=== PATIENT | female | born 1990 | race African-American/Black ===

== ENCOUNTER 2020-09-04 21:16 | Emergency (ER) | payer OTHER ==
[2020-09-04 21:53] VITALS: BP 122/75; PULSE 75; TEMP 98.4; BMI 45.7
[2020-09-04] MEDS ORDERED: ONDANSETRON 4 MG/2 ML VIAL IVPUSH ONE (22:47)
[2020-09-04] MEDS ORDERED: SODIUM CHLORIDE 0.9% 500 ML INFUS.BAG IV ONE (22:47)
[2020-09-04] MEDS ORDERED: FAMOTIDINE 20 MG/50 ML IVPB 20 MG/50 ML MG IVPB ONE ×2 (22:47→22:59)
[2020-09-04] MEDS ORDERED: ONDANSETRON 4 MG/2 ML VIAL ONE (22:59)
[2020-09-04 23:04] LABS: BASO % 0.9 % (0-2.0); EOS % 5.8 % (0-4.5); HEMATOCRIT 30.3 % (32.4-45.2); HEMOGLOBIN 10.1 GM/dL (10.7-15.3); LYMPH % 30.5 % (8-40); MCH 28.5 pg (25.7-33.7); MCHC 33.5 g/dl (32.0-36.0); MEAN CELL VOLUME 85.1 fl (80-96); MEAN PLT VOLUME 7.6 fl (7.5-11.1); MONO % 4.2 % (3.8-10.2); NEUT % 58.6 % (42.8-82.8); PLATELET COUNT 251 K/MM3 (134-434); RBC 3.56 M/mm3 (3.60-5.2)
[2020-09-04 23:19] LABS: HCG,QUALITATIVE URINE Positive; PH,URINE 5.5 (5.0-8.0); URINE APPEARANCE CLEAR; URINE BILIRUBIN NEGATIVE (NEGATIVE); URINE COLOR YELLOW; URINE GLUCOSE (UA) NEGATIVE (NEGATIVE); URINE KETONE TRACE (NEGATIVE); URINE LEUK ESTERASE NEGATIVE (NEGATIVE); URINE NITRITE NEGATIVE (NEGATIVE); URINE PROTEIN NEGATIVE (NEGATIVE)
[2020-09-04 23:23] LABS: POTASSIUM 3.7 mmol/L (3.5-5.1)
[2020-09-04 23:25] LABS: CALCIUM 8.8 mg/dL (8.5-10.1)
[2020-09-04 23:26] LABS: ALBUMIN 3.3 g/dl (3.4-5.0); BLOOD UREA NITROGEN 17.6 mg/dL (7-18)
[2020-09-04 23:29] LABS: CREATININE 0.8 mg/dL (0.55-1.3)
[2020-09-04 23:30] LABS: TOT PROT 7.3 g/dl (6.4-8.2)
[2020-09-04 23:32] LABS: BILIRUBIN,TOTAL 0.2 mg/dL (0.2-1)
== END 2020-09-05 02:58 | disposition home or self-care (01) ==
LOC: JER 21:16
PROC: 3E033GC Introduction of Other Therapeutic Substance into Peripheral Vein, Percutaneous Approach (ICD-10-PCS; principal; 2020-09-04)
PROC: 3E033GC Introduction of Other Therapeutic Substance into Peripheral Vein, Percutaneous Approach (ICD-10-PCS; 2020-09-04)
DX: O21.1 Hyperemesis gravidarum with metabolic disturbance (principal); R19.7 Diarrhea, unspecified; Z3A.01 Less than 8 weeks gestation of pregnancy
CPT/HCPCS: 36415; 76817-TC; 80053; 81003; 83690; 84702; 84703; 85025; 86850; 86900; 86901; 87086; 99285-25; C9803; U0003

== ENCOUNTER 2021-04-03 22:10 | Inpatient (IN) | payer OTHER ==
[2021-04-03] MEDS: ELECTROLYTE-148 SOLN 1,000 ML IV SCH (22:30)
[2021-04-03 22:52] LABS: BASO % 0.2 % (0-2.0); EOS % 5.2 % (0-4.5); HEMATOCRIT 22.5 % (32.4-45.2); HEMOGLOBIN 7.3 GM/dL (10.7-15.3); MCHC 32.5 g/dl (32.0-36.0); MEAN CELL VOLUME 76.9 fl (80-96); MEAN PLT VOLUME 7.5 fl (7.5-11.1); NEUT % 62.6 % (42.8-82.8); PLATELET COUNT 197 10^3/uL (134-434); RBC 2.93 M/mm3 (3.60-5.2); RDW 15.7 % (11.6-15.6); WHITE BLOOD COUNT 5.6 K/mm3 (4.0-10.0)
[2021-04-03 22:59] LABS: INR 0.97 (0.83-1.09); PROTHROMBIN TIME (PATIENT) 11.9 SEC (9.7-13.0)
[2021-04-03 23:01] LABS: ACTIVATED PTT 24.2 SECONDS (25.2-36.5)
[2021-04-03] MEDS ORDERED: BETAMET ACET/BETAMET NA PH 30 MG/5 ML VIAL ONE (23:02)
[2021-04-03] MEDS ORDERED: AMPICILLIN SODIUM 2 GM VIAL ONE (23:07)
[2021-04-03 23:13] LABS: CALCIUM 8.4 mg/dL (8.5-10.1)
[2021-04-03 23:14] LABS: BLOOD UREA NITROGEN 6.4 mg/dL (7-18)
[2021-04-03 23:17] LABS: CREATININE 0.6 mg/dL (0.55-1.3)
[2021-04-03] MEDS ORDERED: PROMETHAZINE HCL 25 MG/1 ML VIAL IVPUSH ONE (23:24)
[2021-04-03] MEDS ORDERED: AMPICILLIN - 2 GM in SODIUM CHLORIDE 100 ML IVPB ONE (23:25)
[2021-04-04 00:08] LABS: HIV INTERPRETATION NEGATIVE (NEGATIVE)
[2021-04-04 00:23] VITALS: BMI 51.7
[2021-04-04] MEDS ORDERED: AMPICILLIN SODIUM 1 GM VIAL ONE (02:32)
[2021-04-04 02:57] LABS: PH,URINE 6.5 (5.0-8.0); URINE APPEARANCE CLEAR; URINE BILIRUBIN NEGATIVE (NEGATIVE); URINE COLOR YELLOW; URINE GLUCOSE (UA) NEGATIVE (NEGATIVE); URINE KETONE 1+ (NEGATIVE); URINE LEUK ESTERASE NEGATIVE (NEGATIVE); URINE NITRITE NEGATIVE (NEGATIVE); URINE PROTEIN NEGATIVE (NEGATIVE)
[2021-04-04] MEDS ORDERED: AMPICILLIN - 1 GM in SODIUM CHLORIDE 100 ML IVPB ONE (03:00)
[2021-04-04] MEDS: ELECTROLYTE-148 SOLN 1,000 ML IV SCH (04:00)
[2021-04-04 12:48] VITALS: BP 132/85; PULSE 92; TEMP 97.9
[2021-04-04 15:55] LABS: HEMATOCRIT 26.5 % (32.4-45.2); HEMOGLOBIN 8.7 GM/dL (10.7-15.3); MCH 25.7 pg (25.7-33.7); MCHC 32.9 g/dl (32.0-36.0); MEAN CELL VOLUME 78.2 fl (80-96); MEAN PLT VOLUME 7.8 fl (7.5-11.1); PLATELET COUNT 210 10^3/uL (134-434); RBC 3.38 M/mm3 (3.60-5.2); RDW 15.6 % (11.6-15.6); WHITE BLOOD COUNT 7.2 K/mm3 (4.0-10.0)
[2021-04-04 18:11] LABS: PH,URINE 6.5 (5.0-8.0); URINE APPEARANCE CLEAR; URINE BILIRUBIN NEGATIVE (NEGATIVE); URINE COLOR YELLOW; URINE GLUCOSE (UA) NEGATIVE (NEGATIVE); URINE KETONE NEGATIVE (NEGATIVE); URINE LEUK ESTERASE NEGATIVE (NEGATIVE); URINE NITRITE NEGATIVE (NEGATIVE); URINE PROTEIN NEGATIVE (NEGATIVE)
== END 2021-04-04 18:38 | disposition home or self-care (01) | DRG 563 ==
LOC: JLDR 22:10
PROVIDERS: ADMIT Obstetrics & Gynecology; ATTEND Obstetrics & Gynecology
DX: O60.03 Preterm labor without delivery, third trimester (principal); O99.013 Anemia complicating pregnancy, third trimester; D64.9 Anemia, unspecified; O99.213 Obesity complicating pregnancy, third trimester; Z3A.36 36 weeks gestation of pregnancy; O26.893 Other specified pregnancy related conditions, third trimester; E86.0 Dehydration
CPT/HCPCS: 36415; 36430; 80048; 81003; 85025; 85027; 85610; 85730; 86780; 86850; 86900; 86901; 86922; 87086; 87340; 87389; C9803; P9058; U0003; U0005

== ENCOUNTER 2021-04-16 16:57 | Inpatient (IN) | payer OTHER ==
[2021-04-16 17:55] LABS: BASO % 0.3 % (0-2.0); EOS % 3.5 % (0-4.5); HEMATOCRIT 27.7 % (32.4-45.2); HEMOGLOBIN 9.2 GM/dL (10.7-15.3); LYMPH % 23.5 % (8-40); MCH 25.8 pg (25.7-33.7); MCHC 33.3 g/dl (32.0-36.0); MEAN CELL VOLUME 77.4 fl (80-96); MEAN PLT VOLUME 7.9 fl (7.5-11.1); MONO % 4.7 % (3.8-10.2); PLATELET COUNT 181 10^3/uL (134-434); RBC 3.57 M/mm3 (3.60-5.2); RDW 16.7 % (11.6-15.6); WHITE BLOOD COUNT 5.9 K/mm3 (4.0-10.0)
[2021-04-16 18:01] LABS: INR 1.01 (0.83-1.09); PROTHROMBIN TIME (PATIENT) 12.2 SEC (9.7-13.0)
[2021-04-16 18:04] LABS: ACTIVATED PTT 25.4 SECONDS (25.2-36.5)
[2021-04-16 18:12] LABS: CALCIUM 8.2 mg/dL (8.5-10.1)
[2021-04-16 18:13] LABS: BLOOD UREA NITROGEN 6.6 mg/dL (7-18)
[2021-04-16 18:16] LABS: CREATININE 0.6 mg/dL (0.55-1.3)
[2021-04-16 20:05] VITALS: BMI 54.7
[2021-04-16] MEDS ORDERED: ELECTROLYTE-148 SOLN 1,000 ML IV SCH (20:30)
[2021-04-16] MEDS ORDERED: OXYTOCIN 30 UNITS in 0.9% NS 30 UNIT/500 ML INFUS.BAG IVPB SCH (20:45)
[2021-04-16 21:41] LABS: POC NITRAZINE POS
[2021-04-16] MEDS ORDERED: OXYTOCIN 30 UNITS in 0.9% NS 30 UNIT/500 ML INFUS.BAG IVPB ONE (22:15)
[2021-04-16] MEDS ORDERED: LABETALOL HCL 200 MG TABLET (FP) ONE (22:41)
[2021-04-16] MEDS: LABETALOL HCL 200 MG TABLET (FP) PO SCH (22:44)
[2021-04-17] MEDS ORDERED: OXYTOCIN 20 UNITS in 0.9% NS 20 UNIT/1,000 ML INFUS.BAG IV ONE (01:10)
[2021-04-17] MEDS ORDERED: BISACODYL 10 MG SUPP.RECT RC PRN (01:31)
[2021-04-17] MEDS ORDERED: METHYLERGONOVINE MALEATE 0.2 MG/1 ML AMP IM PRN (01:31)
[2021-04-17] MEDS ORDERED: BENZOCAINE 28 GM HEMORRHOIDAL OINTMENT TP PRN (01:31)
[2021-04-17] MEDS ORDERED: WITCH HAZEL 50% (TUCKS) 40 PAD/JAR PAD TP PRN (01:31)
[2021-04-17] MEDS ORDERED: BENZOCAINE 20% 57 GM BOTTLE TP PRN (01:31)
[2021-04-17] MEDS ORDERED: LIDOCAINE HCL 1% PRESERVATIVE FREE - 30ML VIAL ONE (01:42)
[2021-04-17] MEDS ORDERED: OXYTOCIN 20 UNITS in 0.9% NS 20 UNIT/1,000 ML INFUS.BAG IV SCH (01:45)
[2021-04-17] MEDS ORDERED: PROMETHAZINE HCL 25 MG/1 ML VIAL ONE (04:21)
[2021-04-17] MEDS ORDERED: BUTORPHANOL TARTRATE 1 MG/ML VIAL ONE (04:21)
[2021-04-17] MEDS ORDERED: PROMETHAZINE HCL 25 MG/1 ML VIAL IVPB ONE (04:30)
[2021-04-17] MEDS ORDERED: BUTORPHANOL TARTRATE 1 MG/ML VIAL IVPB ONE (04:30)
[2021-04-17] MEDS ORDERED: morphine SULFATE/PF 0.5 MG/ML (2cc Syringe - QUVA) ONE (05:22)
[2021-04-17] MEDS ORDERED: morphine SULFATE/PF 0.5 MG/ML (2cc Syringe - QUVA) SPIN ONE (05:42)
[2021-04-17] MEDS ORDERED: ceFAZolin SODIUM 1 GM VIAL ONE (06:16)
[2021-04-17] MEDS ORDERED: oxyCODONE HCL 5 MG TABLET PO PRN (06:30)
[2021-04-17] MEDS ORDERED: KETOROLAC TROMETHAMINE 30 MG/1 ML VIAL ONE ×2 (06:36→09:05)
[2021-04-17] MEDS ORDERED: OXYTOCIN 10 UNITS/ML VIAL ONE (06:36)
[2021-04-17] MEDS ORDERED: SODIUM CHLORIDE 0.9% P/F 10 ML VIAL IJ ONE (06:36)
[2021-04-17] MEDS ORDERED: ONDANSETRON 4 MG/2 ML VIAL ONE (06:36)
[2021-04-17] MEDS ORDERED: ONDANSETRON 4 MG/2 ML VIAL IVPUSH PRN ×2 (06:58)
[2021-04-17] MEDS ORDERED: ACETAMINOPHEN 1000 MG/100 ML VIAL (NON FORMULARY) IVPB ONE (07:00)
[2021-04-17] MEDS ORDERED: LACTATED RINGERS SOLUTION 1,000 ML IV SCH (07:00)
[2021-04-17 07:21] LABS: CORD BASE EXCESS -4.4 mmol/L (0-2); CORD PCO2 67.6 mmHg (30-78); CORD pH 7.186 (7.14-7.44)
[2021-04-17 07:24] LABS: CORD BASE EXCESS -2.7 mmol/L (0-2); CORD HCO3 23.8 mmHg (20-29); CORD PCO2 47.7 mmHg (30-78); CORD pH 7.316 (7.14-7.44)
[2021-04-17] MEDS ORDERED: ACETAMINOPHEN INJECTION 100 ML IVPB ONE (08:13)
[2021-04-17] MEDS ORDERED: KETOROLAC TROMETHAMINE 30 MG/1 ML VIAL IVPUSH ONE (09:05)
[2021-04-17] MEDS ORDERED: HYDROmorphone HCl 2 MG/ML VIAL IVPUSH PRN (09:06)
[2021-04-17] MEDS ORDERED: CEFAZOLIN 1 GM/D5W 1 GM/50 ML BAG IVPB SCH (10:00)
[2021-04-17] MEDS: LABETALOL HCL 200 MG TABLET (FP) PO SCH ×2 (13:22→21:51)
[2021-04-17] MEDS: SIMETHICONE 80 MG TAB.CHEW (FP) PO PRN ×2 (13:30→18:36)
[2021-04-17] MEDS: IBUPROFEN 600 MG TABLET (FP) PO PRN ×2 (13:30→18:35)
[2021-04-17] MEDS: CEFAZOLIN 1 GM/D5W 1 GM/50 ML BAG IVPB SCH ×2 (13:35→21:51)
[2021-04-17] MEDS: ACETAMINOPHEN 325 MG TABLET (FP) PO PRN (18:35)
[2021-04-17] MEDS ORDERED: ACETAMINOPHEN 1000 MG/100 ML VIAL (NON FORMULARY) IVPB PRN (22:53)
[2021-04-17] MEDS ORDERED: IBUPROFEN 800 MG/8 ML IJ IVPB PRN (22:54)
[2021-04-18] MEDS: CEFAZOLIN 1 GM/D5W 1 GM/50 ML BAG IVPB SCH (06:23)
[2021-04-18 08:11] LABS: BASO % 0.3 % (0-2.0); EOS % 1.9 % (0-4.5); HEMATOCRIT 20.9 % (32.4-45.2); LYMPH % 18.3 % (8-40); MCH 26.4 pg (25.7-33.7); MCHC 33.5 g/dl (32.0-36.0); MEAN CELL VOLUME 78.9 fl (80-96); MEAN PLT VOLUME 8.4 fl (7.5-11.1); MONO % 6.5 % (3.8-10.2); PLATELET COUNT 144 10^3/uL (134-434); RBC 2.65 M/mm3 (3.60-5.2); RDW 17.1 % (11.6-15.6)
[2021-04-18] MEDS: LABETALOL HCL 200 MG TABLET (FP) PO SCH ×2 (09:40→22:14)
[2021-04-18] MEDS: SIMETHICONE 80 MG TAB.CHEW (FP) PO PRN ×3 (09:56→21:25)
[2021-04-18] MEDS: oxyCODONE HCL 5 MG TABLET PO PRN ×3 (09:57→21:26)
[2021-04-18] MEDS: PRENATAL VITAMINS W/ FOLIC ACID TABLET (FP) PO SCH (10:28)
[2021-04-18] MEDS: FERROUS SO4 325 MG TABLET (FP) PO SCH ×2 (10:28→21:25)
[2021-04-18] MEDS: ACETAMINOPHEN 325 MG TABLET (FP) PO PRN ×2 (15:27→21:25)
[2021-04-18] MEDS: IBUPROFEN 600 MG TABLET (FP) PO PRN ×2 (15:28→21:25)
[2021-04-18] MEDS: SENNOSIDES/DOCUSATE COMBO (SENNA PLUS) TABLET (UD) PO PRN (21:25)
[2021-04-19] MEDS: ACETAMINOPHEN 325 MG TABLET (FP) PO PRN ×5 (03:56→22:34)
[2021-04-19] MEDS: IBUPROFEN 600 MG TABLET (FP) PO PRN ×5 (03:56→22:33)
[2021-04-19] MEDS: SIMETHICONE 80 MG TAB.CHEW (FP) PO PRN ×5 (03:56→22:34)
[2021-04-19] MEDS: oxyCODONE HCL 5 MG TABLET PO PRN (03:57)
[2021-04-19] MEDS: FERROUS SO4 325 MG TABLET (FP) PO SCH ×2 (09:09→22:34)
[2021-04-19] MEDS: PRENATAL VITAMINS W/ FOLIC ACID TABLET (FP) PO SCH (09:09)
[2021-04-19] MEDS: LABETALOL HCL 200 MG TABLET (FP) PO SCH ×2 (09:09→22:37)
[2021-04-19 12:46] LABS: BASO % 0.3 % (0-2.0); EOS % 2.8 % (0-4.5); HEMATOCRIT 22.4 % (32.4-45.2); HEMOGLOBIN 7.6 GM/dL (10.7-15.3); LYMPH % 18.7 % (8-40); MCH 27.2 pg (25.7-33.7); MCHC 33.9 g/dl (32.0-36.0); MEAN CELL VOLUME 80.1 fl (80-96); MEAN PLT VOLUME 7.9 fl (7.5-11.1); MONO % 5.2 % (3.8-10.2); PLATELET COUNT 161 10^3/uL (134-434); RBC 2.79 M/mm3 (3.60-5.2); RDW 18.1 % (11.6-15.6); WHITE BLOOD COUNT 8.1 K/mm3 (4.0-10.0)
[2021-04-19] MEDS: SENNOSIDES/DOCUSATE COMBO (SENNA PLUS) TABLET (UD) PO PRN (22:34)
[2021-04-20] MEDS: IBUPROFEN 600 MG TABLET (FP) PO PRN ×3 (07:44→19:35)
[2021-04-20] MEDS: ACETAMINOPHEN 325 MG TABLET (FP) PO PRN ×2 (07:44→19:36)
[2021-04-20] MEDS: SIMETHICONE 80 MG TAB.CHEW (FP) PO PRN ×2 (07:45→19:35)
[2021-04-20 08:43] LABS: BASO % 0.3 % (0-2.0); EOS % 3.3 % (0-4.5); HEMATOCRIT 21.5 % (32.4-45.2); HEMOGLOBIN 7.3 GM/dL (10.7-15.3); LYMPH % 22.5 % (8-40); MCH 27.3 pg (25.7-33.7); MCHC 33.9 g/dl (32.0-36.0); MEAN CELL VOLUME 80.4 fl (80-96); MEAN PLT VOLUME 8.2 fl (7.5-11.1); MONO % 4.4 % (3.8-10.2); NEUT % 69.5 % (42.8-82.8); PLATELET COUNT 172 10^3/uL (134-434); RBC 2.67 M/mm3 (3.60-5.2); RDW 18.5 % (11.6-15.6); WHITE BLOOD COUNT 6.9 K/mm3 (4.0-10.0)
[2021-04-20] MEDS: FERROUS SO4 325 MG TABLET (FP) PO SCH ×2 (10:01→21:48)
[2021-04-20] MEDS: PRENATAL VITAMINS W/ FOLIC ACID TABLET (FP) PO SCH (10:01)
[2021-04-20] MEDS: LABETALOL HCL 200 MG TABLET (FP) PO SCH ×2 (10:03→21:51)
[2021-04-21] MEDS: ACETAMINOPHEN 325 MG TABLET (FP) PO PRN (04:23)
[2021-04-21] MEDS: IBUPROFEN 600 MG TABLET (FP) PO PRN ×2 (04:23→09:34)
[2021-04-21 05:44] VITALS: PULSE 98
[2021-04-21] MEDS: SIMETHICONE 80 MG TAB.CHEW (FP) PO PRN (09:34)
[2021-04-21] MEDS: PRENATAL VITAMINS W/ FOLIC ACID TABLET (FP) PO SCH (09:34)
[2021-04-21] MEDS: FERROUS SO4 325 MG TABLET (FP) PO SCH (09:34)
[2021-04-21 10:37] LABS: BASO % 0.2 % (0-2.0); EOS % 3.7 % (0-4.5); HEMATOCRIT 26.5 % (32.4-45.2); HEMOGLOBIN 8.9 GM/dL (10.7-15.3); LYMPH % 15.5 % (8-40); MCH 27.3 pg (25.7-33.7); MCHC 33.7 g/dl (32.0-36.0); MEAN CELL VOLUME 80.9 fl (80-96); MEAN PLT VOLUME 7.7 fl (7.5-11.1); MONO % 4.8 % (3.8-10.2); NEUT % 75.8 % (42.8-82.8); PLATELET COUNT 203 10^3/uL (134-434); RBC 3.28 M/mm3 (3.60-5.2); RDW 17.9 % (11.6-15.6)
[2021-04-21] MEDS: LABETALOL HCL 200 MG TABLET (FP) PO SCH (12:59)
[2021-04-21 14:35] VITALS: BP 128/70; TEMP 98
== END 2021-04-21 13:25 | disposition home or self-care (01) | DRG 540 ==
LOC: JPSTI 16:57 → JLDR 17:25 → J3W 04-17 09:30
PROVIDERS: ADMIT Obstetrics & Gynecology; ATTEND Obstetrics & Gynecology
PROC: 10D00Z1 Extraction of Products of Conception, Low, Open Approach (ICD-10-PCS; principal; 2021-04-17)
PROC: 30233N1 Transfusion of Nonautologous Red Blood Cells into Peripheral Vein, Percutaneous Approach (ICD-10-PCS; 2021-04-17)
DX: O62.1 Secondary uterine inertia (principal); O99.214 Obesity complicating childbirth; O13.3 Gestational [pregnancy-induced] hypertension without significant proteinuria, third trimester; O99.013 Anemia complicating pregnancy, third trimester; Z3A.38 38 weeks gestation of pregnancy; Z37.0 Single live birth
CPT/HCPCS: 36415; 36430; 36511; 36600; 80048; 82803; 83986-QW; 85025; 85610; 85730; 86780; 86850; 86900; 86901; 86922; 88307-TC; C9803; J0131; P9038; P9058; U0003; U0005

== ENCOUNTER 2021-04-26 13:01 | Inpatient (IN) | payer OTHER ==
[2021-04-26 13:16] VITALS: BMI 51.8
[2021-04-26] MEDS ORDERED: ACETAMINOPHEN 1000 MG/100 ML VIAL (NON FORMULARY) IVPB ONE ×2 (15:08→19:49)
[2021-04-26] MEDS ORDERED: SODIUM CHLORIDE 0.9% 500 ML INFUS.BAG IV ONE (15:08)
[2021-04-26] MEDS ORDERED: ACETAMINOPHEN INJECTION 100 ML IVPB ONE ×2 (15:15→19:41)
[2021-04-26 16:06] LABS: BASO % 0.2 % (0-2.0); EOS % 1.9 % (0-4.5); HEMATOCRIT 29.9 % (32.4-45.2); HEMOGLOBIN 9.9 GM/dL (10.7-15.3); LYMPH % 10.7 % (8-40); MCH 26.4 pg (25.7-33.7); MCHC 33.2 g/dl (32.0-36.0); MEAN CELL VOLUME 79.4 fl (80-96); NEUT % 83.2 % (42.8-82.8); PLATELET COUNT 368 10^3/uL (134-434); RBC 3.77 M/mm3 (3.60-5.2); RDW 17.7 % (11.6-15.6); WHITE BLOOD COUNT 11.8 K/mm3 (4.0-10.0)
[2021-04-26 16:07] LABS: INR 1.1 (0.83-1.09); PROTHROMBIN TIME (PATIENT) 13.3 SEC (9.7-13.0)
[2021-04-26 16:10] LABS: ACTIVATED PTT 26.6 SECONDS (25.2-36.5)
[2021-04-26 16:16] LABS: CALCIUM 8.3 mg/dL (8.5-10.1)
[2021-04-26 16:17] LABS: ALBUMIN 2.5 g/dl (3.4-5.0); BLOOD UREA NITROGEN 13.4 mg/dL (7-18)
[2021-04-26 16:20] LABS: CREATININE 0.7 mg/dL (0.55-1.3)
[2021-04-26 16:22] LABS: BILIRUBIN,TOTAL 1.1 mg/dL (0.2-1)
[2021-04-26] MEDS ORDERED: AMPICILLIN NA/SULBACTAM NA 3 GM in SODIUM CHLORIDE 100 ML IVPB ONE (19:49)
[2021-04-27 00:35] LABS: URINE APPEARANCE CLEAR; URINE BILIRUBIN NEGATIVE (NEGATIVE); URINE COLOR YELLOW; URINE GLUCOSE (UA) NEGATIVE (NEGATIVE); URINE KETONE NEGATIVE (NEGATIVE); URINE PROTEIN NEGATIVE (NEGATIVE); URINE UROBILINOGEN 4.0 E.U/dl mg/dL (0.2-1.0)
[2021-04-27 00:36] LABS: URINE LEUK ESTERASE NEGATIVE (NEGATIVE); URINE NITRITE NEGATIVE (NEGATIVE); URINE RBC 14 /uL (0-23.9)
[2021-04-27 00:37] LABS: EPI CELLS 15 /uL (0-25.1); HYALINE CASTS 0 /uL (0-3.1); URINE BACTERIA 226 /uL (0-1359); URINE WBC 33 /uL (0-25.8)
[2021-04-27] MEDS: VANCOMYCIN 1 GRAM (PRE-DOCKED) 1,000 MG/250 ML BAG IVPB SCH ×2 (01:19→12:24)
[2021-04-27] MEDS ORDERED: IBUPROFEN 600 MG TABLET (FP) PO PRN (04:33)
[2021-04-27] MEDS: PIPERACILLIN/TAZOB 3.375 GM 3.375 GM in DEXTROSE 5%-WATER - 50 ML IVPB SCH ×4 (05:12→19:24)
[2021-04-27 09:03] LABS: HEMATOCRIT 30.2 % (32.4-45.2); MCH 26.4 pg (25.7-33.7); MCHC 33.3 g/dl (32.0-36.0); MEAN CELL VOLUME 79.4 fl (80-96); MEAN PLT VOLUME 6.8 fl (7.5-11.1); PLATELET COUNT 353 10^3/uL (134-434); RBC 3.81 M/mm3 (3.60-5.2); RDW 18.1 % (11.6-15.6); WHITE BLOOD COUNT 10.4 K/mm3 (4.0-10.0)
[2021-04-27 09:32] LABS: ALBUMIN 2.4 g/dl (3.4-5.0); BLOOD UREA NITROGEN 8.8 mg/dL (7-18); CALCIUM 8.2 mg/dL (8.5-10.1)
[2021-04-27 09:33] LABS: MAGNESIUM 2.5 mg/dL (1.8-2.4)
[2021-04-27 09:35] LABS: CREATININE 0.7 mg/dL (0.55-1.3)
[2021-04-27 09:37] LABS: BILIRUBIN,TOTAL 1.1 mg/dL (0.2-1); TOT PROT 6.6 g/dl (6.4-8.2)
[2021-04-27] MEDS: VANCOMYCIN 1,000 MG in DEXTROSE 5%-WATER - 250 ML IVPB SCH (12:24)
[2021-04-27] MEDS: VANCOMYCIN/WATER BAGS 1,250 MG/250 ML BAG IVPB SCH (13:34)
[2021-04-27] MEDS ORDERED: ACETAMINOPHEN 500 MG TABLET (FP) PO PRN (13:42)
[2021-04-27] MEDS ORDERED: traMADol HCL 50 MG TABLET PO PRN (13:43)
[2021-04-27] MEDS: PIPERACILLIN/TAZOB 4.5 GM 4.5 GM in DEXTROSE 5%-WATER 100 ML IVPB SCH (17:27)
[2021-04-27] MEDS: DOCUSATE SODIUM 100 MG CAPSULE (FP) PO SCH (21:42)
[2021-04-28] MEDS: VANCOMYCIN/WATER BAGS 1,250 MG/250 ML BAG IVPB SCH ×2 (01:09→14:44)
[2021-04-28] MEDS: PIPERACILLIN/TAZOB 4.5 GM 4.5 GM in DEXTROSE 5%-WATER 100 ML IVPB SCH ×2 (03:06→10:36)
[2021-04-28] MEDS ORDERED: AMOX TR/POT CLAV 875MG/125MG TABLETS (FP) PO SCH (08:00)
[2021-04-28 09:34] LABS: BASO % 0.4 % (0-2.0); EOS % 3.3 % (0-4.5); HEMATOCRIT 27.2 % (32.4-45.2); HEMOGLOBIN 9.2 GM/dL (10.7-15.3); LYMPH % 13.8 % (8-40); MCH 27.1 pg (25.7-33.7); MEAN CELL VOLUME 79.8 fl (80-96); MEAN PLT VOLUME 7.3 fl (7.5-11.1); MONO % 5.4 % (3.8-10.2); NEUT % 77.1 % (42.8-82.8); PLATELET COUNT 335 10^3/uL (134-434); RDW 17.7 % (11.6-15.6); WHITE BLOOD COUNT 8.1 K/mm3 (4.0-10.0)
[2021-04-28 09:56] LABS: CALCIUM 7.9 mg/dL (8.5-10.1)
[2021-04-28 09:57] LABS: ALBUMIN 2.4 g/dl (3.4-5.0)
[2021-04-28 09:58] LABS: MAGNESIUM 2.6 mg/dL (1.8-2.4)
[2021-04-28] MEDS: DOCUSATE SODIUM 100 MG CAPSULE (FP) PO SCH (09:59)
[2021-04-28 10:00] LABS: BILIRUBIN,DIRECT 0.3 mg/dL (0.0-0.2); CREATININE 0.8 mg/dL (0.55-1.3); PHOSPHOROUS 5.2 mg/dL (2.5-4.9)
[2021-04-28 10:01] LABS: BILIRUBIN,TOTAL 0.9 mg/dL (0.2-1); TOT PROT 6.3 g/dl (6.4-8.2)
[2021-04-28] MEDS ORDERED: FERROUS SO4 325 MG TABLET (FP) PO SCH (17:00)
[2021-04-28] MEDS ORDERED: AMOX TR/POT CLAV 875MG/125MG TABLETS (FP) PO ONE (20:00)
[2021-04-28 20:02] VITALS: BP 143/91; PULSE 78; TEMP 98.9
== END 2021-04-28 20:21 | disposition home or self-care (01) | DRG 561 ==
LOC: JER 13:01 → JERBED 19:54 → J3W 23:40
PROVIDERS: ADMIT Internal Medicine; ATTEND Internal Medicine
DX: O90.2 Hematoma of obstetric wound (principal); O86.04 Sepsis following an obstetrical procedure; A41.9 Sepsis, unspecified organism; R74.01 Elevation of levels of liver transaminase levels; O99.03 Anemia complicating the puerperium; D64.9 Anemia, unspecified; O99.215 Obesity complicating the puerperium; E66.01 Morbid (severe) obesity due to excess calories; Z90.49 Acquired absence of other specified parts of digestive tract; Z98.84 Bariatric surgery status
CPT/HCPCS: 36415; 71046-TC-FY; 74177-TC; 80048; 80053; 80076; 81003; 83540; 83550; 83735; 84100; 85025; 85027; 85610; 85730; 86850; 86900; 86901; 87040; 87086; 93005; 93010; 99283-25; 99285-25; C9803; J0131; Q9967; U0003; U0005

== ENCOUNTER 2021-10-19 10:14 | Emergency (ER) | payer OTHER ==
[2021-10-19 10:31] VITALS: BP 114/77; PULSE 90; TEMP 98.9; BMI 51.2
[2021-10-19 11:23] LABS: BASO % 1.2 % (0-2.0); EOS % 6.5 % (0-4.5); HEMATOCRIT 31.9 % (32.4-45.2); HEMOGLOBIN 10.7 GM/dL (10.7-15.3); LYMPH % 32.9 % (8-40); MCH 29.4 pg (25.7-33.7); MCHC 33.6 g/dl (32.0-36.0); MEAN CELL VOLUME 87.4 fl (80-96); MEAN PLT VOLUME 7.8 fl (7.5-11.1); NEUT % 55.4 % (42.8-82.8); PLATELET COUNT 242 10^3/uL (134-434); RBC 3.65 M/mm3 (3.60-5.2); WHITE BLOOD COUNT 5.6 K/mm3 (4.0-10.0)
[2021-10-19 11:32] LABS: INR 1.13 (0.83-1.09)
[2021-10-19 11:35] LABS: ACTIVATED PTT 29.1 SECONDS (25.2-36.5)
[2021-10-19 11:42] LABS: CALCIUM 8.4 mg/dL (8.5-10.1)
[2021-10-19 11:43] LABS: ALBUMIN 3.3 g/dl (3.4-5.0); BLOOD UREA NITROGEN 11.1 mg/dL (7-18)
[2021-10-19 11:46] LABS: CREATININE 0.9 mg/dL (0.55-1.3)
[2021-10-19 11:47] LABS: BILIRUBIN,TOTAL 0.8 mg/dL (0.2-1); TOT PROT 7.2 g/dl (6.4-8.2)
== END 2021-10-19 13:03 | disposition home or self-care (01) ==
LOC: JER 10:14
DX: N93.9 Abnormal uterine and vaginal bleeding, unspecified (principal)
CPT/HCPCS: 36415; 80053; 84703; 85025; 85610; 85730; 86850; 86900; 86901; 99283-25